=== PATIENT | male | born 1975 | race Caucasian/White ===

== ENCOUNTER 2018-07-03 14:04 | Inpatient (IN) | payer OTHER ==
[~2018-07-03] VITALS: Ht 177.8 cm; Wt 80.7 kg
[~2018-07-03 14:04] MED LIST: ARGININE500 MG PO; ASPIRIN325 PO; ATORVASTATIN CA40 MG PO; CELEXA20 MG PO; CENTRUM SILVER1 EAC2 PO; COZAAR 25 MG TA25 M1 PO; EFFIENT10 MG PO; HYDROCODONE-AP1 EAC6 PO; IRON SUPPLEMEN325 MG PO; L-GLUTAMINE500 MG PO; METOPROLOL SUCC25 M1 PO; NITROGLYCERIN0.4 MG SUBLING; SEROQUEL 50 MG50 MG PO
[2018-07-03 14:46] VITALS: BP 120/76
[2018-07-03 15:52] LABS: HEMATOCRIT 41.3 % (42.0-52.0); HEMOGLOBIN 13.7 gm/dL (14.0-18.0); MCHC 33.3 g/dL (28.0-37.0); MCV 87.3 fL (80.0-100.0); RBC 4.73 mil/uL (4.50-6.00); RDW 13.2 % (10.5-14.5); WBC 3.8 thou/uL (4.0-11.0)
[2018-07-03] MEDS ORDERED: ASPIR 8181 MG PO (16:55)
[2018-07-03] MEDS ORDERED: MELATONIN5 M1 PO (17:43)
--- NOTE | 2018-07-03 18:46 | NUR ---
Assumed care of pt at approximately 1530. Pt is a direct admit from [facility]. Pt reports that he has been having blood in stool for roughly 3-4 weeks. In this time period he reported that there was one day where there was a copious amount of nahid blood. Pt then scheduled a colonoscopy for the week of 07/06/18. As of today, copious nahid blood returned and has been consistent through all BMs throughout the day. He was transferred for GI consult unavailable at [place]. Pt currently reports that he has some crampy pain (05/24) that is briefly relieved by BMs. Pain medication offered but denied. Dr. Lane saw PT and has ordered a GI nuclear med scan to help localize region of bleeding. Colonoscopy is not expected until Friday unless pt's HGB continues to drop. Report from [place] indicated HGB of 15.9. As of 1539 the lab here reported his HGB at 13.7. Patient is to remain on clear liquids until a further plan is developede. is at bedisde and is aware of current situation. Patient has not yet begun progressing toward care goals. Will continue to monitor and assess.
[2018-07-03 19:35] VITALS: BP 107/68
--- NOTE | 2018-07-03 22:49 | NUR ---
PT REQUESTED THAT WE REORDER HIS QUENTIPINE 100 MG PO AT BEDTIME. I CONFIRMED THAT THIS MEDICATION DID REFLECT HIS HOME MEDICATION LIST. RECIEVED ORDER FROM PROVIDER.
[2018-07-04 00:23] VITALS: BP 110/61
--- NOTE | 2018-07-04 04:22 | NUR ---
resting quietly tonoght. denies having bloody discharge tonight. blood pressure stable. resting quietly. encouarged to call for assist out of bed, get up slowly and watching for dizziness. he is cooperative, continues on iv fluids.
[2018-07-04 04:48] LABS: HEMATOCRIT 40.3 % (42.0-52.0); HEMOGLOBIN 13.7 gm/dL (14.0-18.0)
[2018-07-04 05:00] VITALS: BP 116/60
[2018-07-04 07:30] VITALS: BP 116/73
[2018-07-04 07:32] VITALS: BP 116/73
[2018-07-04 11:47] VITALS: BP 116/73
--- NOTE | 2018-07-04 12:27 | NUR ---
Assumed care of patient at 0700. Patient is A&Ox4. Up ad carly. Stable and steady on feet, no fall risk. Patient's VS and labs have remained stable. No further signs of bleeding. Patient denies all pain. Dr. Lai rounded on patient, gave okay for DC once ok'd by GI. Spoke with Dr. Cai from GI group and given the patient's current status ok'd the patient for DC. Noted that patient could return to a normal diet and needs to follow-up with GI provider within 1 week to schedule a colonoscopy. Reviewed DC information with patient. Patient has a previously scheduled colonoscopy consult scheduled for 07/07 and will follow-through with appointment. DC'd patient IV. Patient was transported off of unit via wheelchair to private vehicle to discharge home.
== END 2018-07-04 12:31 | disposition home or self-care (01) | DRG 379 ==
LOC: 3W 14:04
PROVIDERS: Nurse Practitioner; ADMIT Hospitalist
DX: K62.5 Hemorrhage of anus and rectum (principal); K59.00 Constipation, unspecified; I25.10 Atherosclerotic heart disease of native coronary artery without angina pectoris; K80.20 Calculus of gallbladder without cholecystitis without obstruction; I25.2 Old myocardial infarction; Z95.5 Presence of coronary angioplasty implant and graft; Z79.82 Long term (current) use of aspirin; Z79.899 Other long term (current) drug therapy; Z88.0 Allergy status to penicillin
CPT/HCPCS: 10879